=== PATIENT | male | born 1960 | race Caucasian/White ===

== ENCOUNTER 2020-10-07 11:38 | Emergency (ER) | payer BC ==
[~2020-10-07] VITALS: Ht 177.8 cm; Wt 75.0 kg
[2020-10-07 11:42] VITALS: BP 174/83; Ht 177.8 cm; Wt 75.0 kg
[2020-10-07 12:21] LABS: BASOPHILS 0.3 % (0-2); EOSINOPHILS 0.2 % (0-7); HEMATOCRIT 43.5 % (42.0-54.0); HEMOGLOBIN 14.7 g/dL (13.5-17.5); LYMPHOCYTES 11.4 % (15-50); MCH 29.2 pg (26.0-34.0); MCHC 33.8 g/dL (31.0-37.0); MCV 86.3 fL (80.0-100.0); MONOCYTES 6.4 % (2-11); NEUTROPHILS 81.7 % (40-80); PLATELET COUNT 212 10x3/uL (130-400); RBC 5.05 10x6/uL (4.20-6.10); RDW 13.2 % (11.5-14.5); WBC 5.5 10x3/uL (4.8-10.8)
[2020-10-07 12:29] LABS: CALC OSMOLALITY 278 mosm/kg (275-300); CALCIUM 8.6 mg/dL (8.5-10.1); CARBON DIOXIDE 24.6 mmol/L (21.0-32.0); CHLORIDE - SERUM 104 mmol/L (98-107); GLUCOSE 131 mg/dL (74-106); POTASSIUM - SERUM 3.9 mmol/L (3.5-5.1); SODIUM 139 mmol/L (136-145); UREA NITROGEN 10 mg/dL (7-18); eGFR NON AFRICAN AMERICAN 81 mL/min (90-120)
[2020-10-07 12:46] LABS: ALBUMIN 3.9 g/dL (3.4-5.0); ALKALINE PHOSPHATASE 61 U/L (30-120); ALT (SGPT) 42 U/L (10-68); BILIRUBIN - TOTAL 0.56 mg/dL (0.2-1.3); CKMB 1.5 U/L (0.0-3.6); CREATINE KINASE 140 UL (21-232); PRO BNP 111 pg/mL (0-125); PROTEIN - SERUM 7.5 g/dL (6.4-8.2)
[2020-10-07 12:50] LABS: TROPONIN-I < 0.017 ng/mL (0.000-0.060)
[2020-10-07 13:46] LABS: APTT 27.4 SECONDS (22.8-39.4); INR 1.16 (0.85-1.17); PROTIME 13.7 SECONDS (11.6-15.0)
[2020-10-07 13:47] LABS: D-DIMER-QUANTITATIVE 0.32 ug/mLFEU (0.20-0.54)
[2020-10-07] MEDS ORDERED: LISINOPRIL-HCT1 EAC4 PO (13:54)
== END 2020-10-07 14:00 | disposition home or self-care (01) ==
LOC: D.ER 11:38
PROVIDERS: Family Medicine
DX: R06.02 Shortness of breath (principal); I10 Essential (primary) hypertension